=== PATIENT | male | born 1955 | race Caucasian/White ===

== ENCOUNTER 2019-08-16 09:37 | Outpatient (CLI) | payer BC | END 2019-08-16 20:58 | disposition home or self-care (01) | LOC: SRD 09:37 | PROVIDERS: ATTEND Internal Medicine | DX: M17.0 Bilateral primary osteoarthritis of knee (principal) ==

== ENCOUNTER 2020-01-18 14:39 | Emergency (ER) | payer BC ==
[~2020-01-18] VITALS: Ht 177.8 cm; Wt 104.3 kg
[2020-01-18 15:14] VITALS: BP_SYST 112
--- NOTE | 2020-01-18 16:40 | NUR ---
Patient to ER bed 7 to gown for evaluation. Side rails up. Report given to STEPHANIE Sánchez.
[2020-01-18] MEDS ORDERED: BACITRACIN 1 GM OINT TP ONE (17:00)
[2020-01-18] MEDS ORDERED: HYDROcodone/ACETAMIN 7.5-325 MG TAB PO ONE (17:00)
[2020-01-18] MEDS ORDERED: LIDOCAINE/EPI 2% 1:100000 20 ML VIAL INJ ONE (17:00)
--- NOTE | 2020-01-18 17:00 | NUR ---
ULISES August examining patient.
--- NOTE | 2020-01-18 17:01 | NUR ---
Patient accompanied by for 4cm crescent shapped laceration to right leg since noon today. Patient reports hitting a 2 x 4. Bleeding controlled. unknown tdap status. pain 05/03. No other complaints/injuries per patient or as noted. Will continue to monitor.
[2020-01-18] MEDS ORDERED: DIPH-TET-PERTUS Vaccine 0.5 ML VIAL (ADACEL) I.M. ONE (17:15)
--- NOTE | 2020-01-18 17:37 | NUR ---
medicated per DETONATOR ASSEMBLER orders
--- NOTE | 2020-01-18 17:40 | NUR ---
CHIP SEPARATOR August at bedside for sutures.
--- NOTE | 2020-01-18 18:16 | NUR ---
Patient has a 4 cm laceration to right lower leg. SHARON August applied 12 sutures using sterile technique. Edges well approximated. Site cleansed with normal saline and betadine. Dressing of non adherent guaze applied to site. No bleeding noted. Pt tolerated well.
[2020-01-18 18:29] VITALS: BP_SYST 112
--- NOTE | 2020-01-18 18:29 | NUR ---
Patient given written and verbal discharge instructions and verbalizes understanding. ER TRANSPORTATION AIDE Mata discussed with patient the results and treatment provided. Patient in stable condition. ID arm band removed. Rx of keflex, bacitracin and norco given. Patient educated on pain management and to follow up with PMD. Pain Scale 0/10 Opportunity for questions provided and answered. Medication side effect fact sheet provided.
== END 2020-01-18 18:29 | disposition home or self-care (01) ==
LOC: SED 14:39
DX: S81.811A Laceration without foreign body, right lower leg, initial encounter (principal); I10 Essential (primary) hypertension; F17.210 Nicotine dependence, cigarettes, uncomplicated; Z71.6 Tobacco abuse counseling; W45.8XXA Other foreign body or object entering through skin, initial encounter; Y93.02 Activity, running; Y92.89 Other specified places as the place of occurrence of the external cause; Y99.8 Other external cause status
CPT/HCPCS: 73590-TC; 90715; 99283

== ENCOUNTER 2020-05-15 13:09 | Outpatient (CLI) | payer BC ==
[2020-05-15] MEDS ORDERED: IOHEXOL 100 ML IV ONE (14:04)
== END 2020-05-15 20:54 | disposition home or self-care (01) ==
LOC: SCT 13:09
DX: D17.0 Benign lipomatous neoplasm of skin and subcutaneous tissue of head, face and neck (principal); R22.1 Localized swelling, mass and lump, neck
CPT/HCPCS: 70491; Q9967